=== PATIENT | female | born 1990 | race Two or more races ===

== ENCOUNTER 2018-08-24 17:03 | Emergency (ER) | payer SELFPAY ==
[~2018-08-24] VITALS: Ht 154.9 cm; Wt 68.9 kg
[2018-08-24 18:40] VITALS: BP 111/67
== END 2018-08-24 20:14 | disposition home or self-care (01) ==
LOC: ER 17:10
DX: H10.9 Unspecified conjunctivitis (principal); A49.9 Bacterial infection, unspecified